=== PATIENT | male | born 1995 | race Caucasian/White ===

== ENCOUNTER 2023-03-02 08:22 | Inpatient (IN) | payer OTHER ==
[~2023-03-02] VITALS: Ht 175.3 cm; Wt 56.8 kg
[2023-03-02] MEDS ORDERED: THIAMINE 100 MG TAB PO SCH (09:00)
[2023-03-02] MEDS ORDERED: MULTIVITAMINS/MINERALS THERAP 1 TAB PO SCH (09:00)
[2023-03-02] MEDS ORDERED: FOLIC ACID 1MG TAB PO SCH (09:00)
[2023-03-02 09:13] LABS: HEMATOCRIT 43.6 % (42.0-52.0); HEMOGLOBIN 15.8 g/dl (13.5-17.5); MEAN CORPUSCULAR HEMOGLOBIN 32.4 pg (27.0-33.0); MEAN CORPUSCULAR HGB CONC 36.2 g/dl (32.0-36.5); MEAN CORPUSCULAR VOLUME 89.3 fl (80.0-96.0); PLATELET COUNT, AUTOMATED 313 10^3/uL (150-450); RED BLOOD COUNT 4.88 10^6/uL (4.30-6.10)
[2023-03-02 09:24] LABS: ACETAMINOPHEN LEVEL < 2.0 UG/ML (10.0-20.0); ALBUMIN 4.4 G/DL (3.2-5.2); ALKALINE PHOSPHATASE 66 U/L (46-116); ALT/SGPT 14 U/L (7.0-40); AST/SGOT 18 U/L (<34); BILIRUBIN,DIRECT 0.2 MG/DL (<0.4); BILIRUBIN,TOTAL 0.4 MG/DL (0.3-1.2); BLOOD UREA NITROGEN 8 MG/DL (9-23); CALCIUM LEVEL 8.6 MG/DL (8.5-10.1); CARBON DIOXIDE LEVEL 24 MMOL/L (20-31); CHLORIDE LEVEL 107 MMOL/L (98-107); CREATININE FOR GFR 0.89 MG/DL (0.70-1.30); GLOMERULAR FILTRATION RATE > 60.0 (>60); GLUCOSE, FASTING 90 MG/DL (60-100); POTASSIUM SERUM 4.2 MMOL/L (3.5-5.1); SALICYLATE LEVEL < 3.0 MG/DL (<30); SODIUM LEVEL 144 MMOL/L (136-145); TOTAL PROTEIN 7.5 G/DL (5.7-8.2)
[2023-03-02] MEDS ORDERED: MED REC IN PROGRESS XX SCH (09:25)
[2023-03-02 09:26] LABS: THYROID STIMULATING HORMONE 2.716 uIU/ML (0.55-4.78)
[2023-03-02] MEDS ORDERED: LORazepam 2 MG TAB PO PRN ×2 (10:05→21:15)
[2023-03-02 12:58] LABS: AMPHETAMINES LEVEL URINE NEGATIVE (NEGATIVE); BARBITURATES URINE NEGATIVE (NEGATIVE); CANNABINOIDS URINE NEGATIVE (NEGATIVE); COCAINE METABOLITE URINE NEGATIVE (NEGATIVE); PHENCYCLIDINE URINE NEGATIVE (NEGATIVE)
[2023-03-02 12:59] LABS: BENZODIAZEPINES URINE NEGATIVE (NEGATIVE); METHADONE URINE NEGATIVE (NEGATIVE); OPIATES URINE NEGATIVE (NEGATIVE)
[2023-03-02] MEDS ORDERED: MED REC CURRENTLY UNOBTAINABLE XX SCH (17:45)
[2023-03-02] MEDS ORDERED: NICOTINE POLACRILEX 2 MG GUM PO ONE (17:50)
[2023-03-02] MEDS ORDERED: ACETAMINOPHEN TAB 650MG DOSE (2X325MG) PO PRN (18:30)
[2023-03-02] MEDS ORDERED: IBUPROFEN 400MG TAB PO PRN (18:30)
[2023-03-02] MEDS ORDERED: MOM 30ML SUSPENSION UDC PO PRN (18:30)
[2023-03-02] MEDS ORDERED: traZODone 50 MG TAB PO PRN (18:30)
[2023-03-02] MEDS ORDERED: MAALOX 30 ML SUSP *UDC PO PRN (18:30)
[2023-03-02] MEDS ORDERED: OLANZapine ORAL DISINTEGRATING TAB 5MG PO PRN (18:30)
[2023-03-02] MEDS ORDERED: diphenhydrAMINE 25MG CAP PO PRN (18:30)
[2023-03-02 20:59] VITALS: BP 137/72; TEMP 97.8; O2SAT 98
[2023-03-02 21:39] VITALS: BP 137/72
[2023-03-02] MEDS: THIAMINE 100 MG TAB PO SCH (21:50)
[2023-03-03 06:43] VITALS: BP 135/79; TEMP 98.3; O2SAT 99
[2023-03-03 06:44] VITALS: BP 135/79
[2023-03-03] MEDS: THIAMINE 100 MG TAB PO SCH ×2 (08:12→21:05)
[2023-03-03] MEDS: FOLIC ACID 1MG TAB PO SCH (08:12)
[2023-03-03] MEDS: MULTIVITAMINS/MINERALS THERAP 1 TAB PO SCH (08:12)
[2023-03-03] MEDS: NICOTINE 21MG/24HR 1 EA TRANSDERMAL TD PRN (08:23)
[2023-03-03] MEDS ORDERED: SERTRALINE HCL 25 MG TABLET PO ONE (09:00)
[2023-03-03] MEDS ORDERED: HOME MED LIST COMPLETE! XX SCH (09:05)
[2023-03-03 14:07] VITALS: BP 131/77
[2023-03-03 16:57] VITALS: BP 131/77; TEMP 99.7; O2SAT 97
[2023-03-03 21:04] VITALS: BP 138/86
[2023-03-03] MEDS: PRAZOSIN 1 MG CAP PO SCH (21:06)
[2023-03-04 06:39] VITALS: BP 139/76; TEMP 98.7; O2SAT 96
[2023-03-04 06:40] VITALS: BP 139/76
[2023-03-04] MEDS: SERTRALINE HCL 50 MG TAB PO SCH (07:34)
[2023-03-04] MEDS: FOLIC ACID 1MG TAB PO SCH (07:34)
[2023-03-04] MEDS: THIAMINE 100 MG TAB PO SCH ×2 (07:34→20:10)
[2023-03-04] MEDS: MULTIVITAMINS/MINERALS THERAP 1 TAB PO SCH (07:34)
[2023-03-04] MEDS: NICOTINE 21MG/24HR 1 EA TRANSDERMAL TD PRN (07:35)
[2023-03-04 14:42] VITALS: BP 128/78
[2023-03-04 18:08] VITALS: BP 139/77; TEMP 96.4; O2SAT 99
[2023-03-04] MEDS: PRAZOSIN 1 MG CAP PO SCH (20:10)
[2023-03-04 21:35] VITALS: BP 135/64
[2023-03-05 05:45] VITALS: BP 117/71; TEMP 99; O2SAT 95
[2023-03-05] MEDS: SERTRALINE HCL 50 MG TAB PO SCH (10:43)
[2023-03-05] MEDS: NICOTINE 21MG/24HR 1 EA TRANSDERMAL TD PRN (10:45)
[2023-03-05 18:22] VITALS: BP 114/72; TEMP 97.1; O2SAT 99
[2023-03-05] MEDS: PRAZOSIN 1 MG CAP PO SCH (20:12)
[2023-03-05] MEDS: traZODone 100 MG TAB PO PRN (20:41)
[2023-03-06 06:22] VITALS: BP 104/61; TEMP 98.7; O2SAT 98
[2023-03-06] MEDS: SERTRALINE HCL 50 MG TAB PO SCH (08:20)
[2023-03-06 17:58] VITALS: BP 117/72; TEMP 97.6; O2SAT 100
[2023-03-06] MEDS: traZODone 100 MG TAB PO PRN (20:16)
[2023-03-06 20:17] VITALS: BP 129/84
[2023-03-06] MEDS: PRAZOSIN 1 MG CAP PO SCH (20:17)
[2023-03-07 06:46] VITALS: BP 112/58; TEMP 98.2; O2SAT 98
[2023-03-07] MEDS: SERTRALINE HCL 50 MG TAB PO SCH (08:26)
[2023-03-07] MEDS ORDERED: NICO21PAT TD (09:36)
[2023-03-07] MEDS ORDERED: TRAZ-252 PO (09:36)
[2023-03-07] MEDS ORDERED: PRAZ2CAP PO (09:36)
[2023-03-07] MEDS ORDERED: TRAZ-257 PO (09:36)
[2023-03-07] MEDS ORDERED: SERT50TA29 PO (09:36)
== END 2023-03-07 11:33 | disposition home or self-care (01) | DRG 882 ==
LOC: M ED 08:22 → M ED INP 18:26 → M PSY 20:46
PROVIDERS: ADMIT Student in an Organized Health Care Education/Training Program; ATTEND Student in an Organized Health Care Education/Training Program
DX: F43.10 Post-traumatic stress disorder, unspecified (principal); F32.1 Major depressive disorder, single episode, moderate; R45.851 Suicidal ideations; F41.9 Anxiety disorder, unspecified